=== PATIENT | male | born 1935 | race American Indian/Alaskan Native ===

== ENCOUNTER 2019-02-15 12:47 | Outpatient (CLI) | payer MEDICARE ==
[2019-02-15] MEDS ORDERED: XYLOCAINE TOPICAL 4% TP ONE (13:30)
[2019-02-15] MEDS ORDERED: NACL 0.9% IR ONE (13:42)
== END 2019-02-15 12:48 | disposition home or self-care (01) ==
LOC: WOUND 12:47
PROVIDERS: ATTEND Surgery
DX: E11.622 Type 2 diabetes mellitus with other skin ulcer (principal); I87.311 Chronic venous hypertension (idiopathic) with ulcer of right lower extremity; L97.812 Non-pressure chronic ulcer of other part of right lower leg with fat layer exposed; E11.39 Type 2 diabetes mellitus with other diabetic ophthalmic complication; H40.9 Unspecified glaucoma; R32 Unspecified urinary incontinence; M06.9 Rheumatoid arthritis, unspecified; E78.5 Hyperlipidemia, unspecified; I87.8 Other specified disorders of veins; Z87.891 Personal history of nicotine dependence; Z95.5 Presence of coronary angioplasty implant and graft; Z98.42 Cataract extraction status, left eye; Z98.41 Cataract extraction status, right eye
CPT/HCPCS: 11042; 11045; G0463; 99205

== ENCOUNTER 2019-02-22 13:00 | Outpatient (CLI) | payer MEDICARE ==
[2019-02-22] MEDS ORDERED: NACL 0.9% IR ONE (13:03)
[2019-02-22] MEDS ORDERED: XYLOCAINE TOPICAL 4% TP ONE (13:04)
== END 2019-02-22 13:01 | disposition home or self-care (01) ==
LOC: WOUND 13:00
PROVIDERS: ATTEND Surgery
DX: E11.622 Type 2 diabetes mellitus with other skin ulcer (principal); L97.812 Non-pressure chronic ulcer of other part of right lower leg with fat layer exposed; I87.311 Chronic venous hypertension (idiopathic) with ulcer of right lower extremity; I87.8 Other specified disorders of veins; E11.319 Type 2 diabetes mellitus with unspecified diabetic retinopathy without macular edema; H40.9 Unspecified glaucoma; I10 Essential (primary) hypertension; E78.5 Hyperlipidemia, unspecified; M06.9 Rheumatoid arthritis, unspecified; Z87.891 Personal history of nicotine dependence

== ENCOUNTER 2019-03-01 12:55 | Outpatient (CLI) | payer MEDICARE ==
[2019-03-01] MEDS ORDERED: XYLOCAINE TOPICAL 4% TP ONE (13:07)
== END 2019-03-01 12:56 | disposition home or self-care (01) ==
LOC: WOUND 12:55
PROVIDERS: ATTEND Surgery
DX: E11.622 Type 2 diabetes mellitus with other skin ulcer (principal); I87.311 Chronic venous hypertension (idiopathic) with ulcer of right lower extremity; L97.812 Non-pressure chronic ulcer of other part of right lower leg with fat layer exposed; I87.8 Other specified disorders of veins; E11.319 Type 2 diabetes mellitus with unspecified diabetic retinopathy without macular edema; H40.9 Unspecified glaucoma; I10 Essential (primary) hypertension; E78.5 Hyperlipidemia, unspecified; M06.9 Rheumatoid arthritis, unspecified; Z87.891 Personal history of nicotine dependence

== ENCOUNTER 2019-03-08 12:55 | Outpatient (CLI) | payer MEDICARE ==
[2019-03-08] MEDS ORDERED: XYLOCAINE TOPICAL 4% TP ONE (13:34)
== END 2019-03-08 12:56 | disposition home or self-care (01) ==
LOC: WOUND 12:55
PROVIDERS: ATTEND Surgery
DX: E11.621 Type 2 diabetes mellitus with foot ulcer (principal); I87.311 Chronic venous hypertension (idiopathic) with ulcer of right lower extremity; L97.514 Non-pressure chronic ulcer of other part of right foot with necrosis of bone; L97.413 Non-pressure chronic ulcer of right heel and midfoot with necrosis of muscle; E11.622 Type 2 diabetes mellitus with other skin ulcer; L97.812 Non-pressure chronic ulcer of other part of right lower leg with fat layer exposed; E78.5 Hyperlipidemia, unspecified; M06.9 Rheumatoid arthritis, unspecified; E11.39 Type 2 diabetes mellitus with other diabetic ophthalmic complication; H42 Glaucoma in diseases classified elsewhere; Z95.1 Presence of aortocoronary bypass graft; Z98.42 Cataract extraction status, left eye; Z98.41 Cataract extraction status, right eye; Z87.891 Personal history of nicotine dependence

== ENCOUNTER 2019-03-21 10:04 | Outpatient (CLI) | payer MEDICARE ==
--- NOTE | 2019-03-21 12:28 | Vascular Lab Report ---
PROCEDURE: VL ARTERIAL DUPLEX LE BILAT TECHNIQUE: Arterial duplex Doppler ultrasound performed. Grayscale, color flow and spectral waveform images are obtained of lower extremity arteries. HISTORY: Chronic venous hypertension (idiopathic) with ulcer of right lower COMPARISON: None FINDINGS: Right side: There is moderate plaque throughout. Flow velocities proximally are slightly elevated. Mo st notable is the deep femoral artery velocity of 244 cm/s and proximal SFA velocity of 217 cm/s as c ompared to external iliac velocity is 167 cm/s. There is phasic flow from distal external iliac arter y to the distal superficial femoral artery. There is monophasic flow from the popliteal artery to the dorsalis pedis artery. Flow is diminished in the anterior tibial and dorsalis pedis arteries. Left side: There is mild atherosclerotic plaque. Velocities proximally are slightly elevated. Most no table is the artery velocity of 221 cm/s distal SFA velocity of 194 cm/s as compared to extend iliac velocity of 179 cm/s. There is phasic flow from the distal external iliac artery to the popliteal art gisselle and posterior tibial artery. There is monophasic flow in the anterior tibial artery and biphasic flow in the dorsalis pedis artery. IMPRESSION: Mild to moderate atherosclerotic plaque, right more than left. Although proximal velocit ies are mildly elevated, I cannot confirm focal stenosis. Findings, as above, suggest mild arterial d isease on the left and moderate arterial disease distally on the right This document is electronically signed by Jessica Miner MD., March 21 2019 12:26:27 PM ET
== END 2019-03-21 10:05 | disposition home or self-care (01) ==
LOC: VAS 10:04
PROVIDERS: ATTEND Surgery
DX: I70.202 Unspecified atherosclerosis of native arteries of extremities, left leg (principal); E11.628 Type 2 diabetes mellitus with other skin complications; I87.311 Chronic venous hypertension (idiopathic) with ulcer of right lower extremity; I10 Essential (primary) hypertension; E11.9 Type 2 diabetes mellitus without complications
CPT/HCPCS: 93925

== ENCOUNTER 2019-03-22 11:07 | Outpatient (CLI) | payer MEDICARE | END 2019-03-22 11:08 | disposition home or self-care (01) | LOC: WOUND 11:07 | PROVIDERS: ATTEND Surgery | DX: I87.311 Chronic venous hypertension (idiopathic) with ulcer of right lower extremity (principal); E11.622 Type 2 diabetes mellitus with other skin ulcer; L97.812 Non-pressure chronic ulcer of other part of right lower leg with fat layer exposed; E78.5 Hyperlipidemia, unspecified; M06.9 Rheumatoid arthritis, unspecified; E11.39 Type 2 diabetes mellitus with other diabetic ophthalmic complication; H42 Glaucoma in diseases classified elsewhere; Z95.1 Presence of aortocoronary bypass graft; Z98.42 Cataract extraction status, left eye; Z98.41 Cataract extraction status, right eye; Z87.891 Personal history of nicotine dependence ==

== ENCOUNTER 2019-03-29 10:51 | Outpatient (CLI) | payer MEDICARE ==
[2019-03-29] MEDS ORDERED: XYLOCAINE TOPICAL 4% TP ONE (11:05)
== END 2019-03-29 10:52 | disposition home or self-care (01) ==
LOC: WOUND 10:51
PROVIDERS: ATTEND Surgery
DX: I87.311 Chronic venous hypertension (idiopathic) with ulcer of right lower extremity (principal); E11.622 Type 2 diabetes mellitus with other skin ulcer; L97.812 Non-pressure chronic ulcer of other part of right lower leg with fat layer exposed; E78.5 Hyperlipidemia, unspecified; M06.9 Rheumatoid arthritis, unspecified; E11.39 Type 2 diabetes mellitus with other diabetic ophthalmic complication; H42 Glaucoma in diseases classified elsewhere; Z95.1 Presence of aortocoronary bypass graft; Z98.42 Cataract extraction status, left eye; Z98.41 Cataract extraction status, right eye; Z87.891 Personal history of nicotine dependence

== ENCOUNTER 2019-04-06 11:00 | Outpatient (CLI) | payer MEDICARE ==
[2019-04-06] MEDS ORDERED: XYLOCAINE TOPICAL 4% TP ONE (11:18)
== END 2019-04-06 11:01 | disposition home or self-care (01) ==
LOC: WOUND 11:00
PROVIDERS: ATTEND Surgery
DX: I87.311 Chronic venous hypertension (idiopathic) with ulcer of right lower extremity (principal); E11.622 Type 2 diabetes mellitus with other skin ulcer; L97.812 Non-pressure chronic ulcer of other part of right lower leg with fat layer exposed; E78.5 Hyperlipidemia, unspecified; M06.9 Rheumatoid arthritis, unspecified; E11.39 Type 2 diabetes mellitus with other diabetic ophthalmic complication; H42 Glaucoma in diseases classified elsewhere

== ENCOUNTER 2019-04-13 10:58 | Outpatient (CLI) | payer MEDICARE ==
[2019-04-13] MEDS ORDERED: XYLOCAINE TOPICAL 4% TP ONE (11:29)
== END 2019-04-13 10:59 | disposition home or self-care (01) ==
LOC: WOUND 10:58
PROVIDERS: ATTEND Surgery
DX: I87.311 Chronic venous hypertension (idiopathic) with ulcer of right lower extremity (principal); E11.622 Type 2 diabetes mellitus with other skin ulcer; L97.812 Non-pressure chronic ulcer of other part of right lower leg with fat layer exposed; E78.5 Hyperlipidemia, unspecified; M06.9 Rheumatoid arthritis, unspecified; E11.39 Type 2 diabetes mellitus with other diabetic ophthalmic complication; H42 Glaucoma in diseases classified elsewhere

== ENCOUNTER 2019-04-19 11:06 | Outpatient (CLI) | payer MEDICARE ==
[2019-04-19] MEDS ORDERED: XYLOCAINE TOPICAL 4% TP ONE (11:30)
== END 2019-04-19 11:07 | disposition home or self-care (01) ==
LOC: WOUND 11:06
PROVIDERS: ATTEND Surgery
DX: I87.311 Chronic venous hypertension (idiopathic) with ulcer of right lower extremity (principal); E11.622 Type 2 diabetes mellitus with other skin ulcer; L97.812 Non-pressure chronic ulcer of other part of right lower leg with fat layer exposed; E78.5 Hyperlipidemia, unspecified; M06.9 Rheumatoid arthritis, unspecified; E11.39 Type 2 diabetes mellitus with other diabetic ophthalmic complication; H42 Glaucoma in diseases classified elsewhere

== ENCOUNTER 2019-04-26 11:03 | Outpatient (CLI) | payer MEDICARE | END 2019-04-26 11:04 | disposition home or self-care (01) | LOC: WOUND 11:03 | PROVIDERS: ATTEND Surgery | DX: I87.311 Chronic venous hypertension (idiopathic) with ulcer of right lower extremity (principal); E11.622 Type 2 diabetes mellitus with other skin ulcer; L97.812 Non-pressure chronic ulcer of other part of right lower leg with fat layer exposed; E78.5 Hyperlipidemia, unspecified; M06.9 Rheumatoid arthritis, unspecified; E11.39 Type 2 diabetes mellitus with other diabetic ophthalmic complication; H42 Glaucoma in diseases classified elsewhere ==

== ENCOUNTER 2019-05-04 12:04 | Outpatient (CLI) | payer MEDICARE ==
[2019-05-04] MEDS ORDERED: XYLOCAINE TOPICAL 4% TP ONE (12:19)
== END 2019-05-04 12:05 | disposition home or self-care (01) ==
LOC: WOUND 12:04
PROVIDERS: ATTEND Surgery
DX: I87.311 Chronic venous hypertension (idiopathic) with ulcer of right lower extremity (principal); E11.622 Type 2 diabetes mellitus with other skin ulcer; L97.812 Non-pressure chronic ulcer of other part of right lower leg with fat layer exposed; E78.5 Hyperlipidemia, unspecified; M06.9 Rheumatoid arthritis, unspecified; E11.39 Type 2 diabetes mellitus with other diabetic ophthalmic complication; H42 Glaucoma in diseases classified elsewhere

== ENCOUNTER 2019-05-10 11:05 | Outpatient (CLI) | payer MEDICARE ==
[2019-05-10] MEDS ORDERED: XYLOCAINE TOPICAL 4% TP ONE (11:28)
== END 2019-05-10 11:06 | disposition home or self-care (01) ==
LOC: WOUND 11:05
PROVIDERS: ATTEND Surgery
DX: E11.622 Type 2 diabetes mellitus with other skin ulcer (principal); I87.311 Chronic venous hypertension (idiopathic) with ulcer of right lower extremity; L97.812 Non-pressure chronic ulcer of other part of right lower leg with fat layer exposed; L84 Corns and callosities; E11.39 Type 2 diabetes mellitus with other diabetic ophthalmic complication; H42 Glaucoma in diseases classified elsewhere; E78.5 Hyperlipidemia, unspecified; M06.9 Rheumatoid arthritis, unspecified

== ENCOUNTER 2019-05-17 11:04 | Outpatient (CLI) | payer MEDICARE | END 2019-05-17 11:05 | disposition home or self-care (01) | LOC: WOUND 11:04 | PROVIDERS: ATTEND Surgery | DX: E11.622 Type 2 diabetes mellitus with other skin ulcer (principal); I87.311 Chronic venous hypertension (idiopathic) with ulcer of right lower extremity; L97.812 Non-pressure chronic ulcer of other part of right lower leg with fat layer exposed; I87.8 Other specified disorders of veins; E11.39 Type 2 diabetes mellitus with other diabetic ophthalmic complication; H42 Glaucoma in diseases classified elsewhere; E78.5 Hyperlipidemia, unspecified; M06.9 Rheumatoid arthritis, unspecified ==

== ENCOUNTER 2019-05-24 11:05 | Outpatient (CLI) | payer MEDICARE ==
[2019-05-24] MEDS ORDERED: XYLOCAINE TOPICAL 4% TP ONE (11:37)
== END 2019-05-24 11:06 | disposition home or self-care (01) ==
LOC: WOUND 11:05
PROVIDERS: ATTEND Surgery
DX: E11.622 Type 2 diabetes mellitus with other skin ulcer (principal); I87.311 Chronic venous hypertension (idiopathic) with ulcer of right lower extremity; L97.812 Non-pressure chronic ulcer of other part of right lower leg with fat layer exposed; I87.8 Other specified disorders of veins; E11.39 Type 2 diabetes mellitus with other diabetic ophthalmic complication; H42 Glaucoma in diseases classified elsewhere; E78.5 Hyperlipidemia, unspecified; M06.9 Rheumatoid arthritis, unspecified

== ENCOUNTER 2019-05-31 11:01 | Outpatient (CLI) | payer MEDICARE | END 2019-05-31 11:02 | disposition home or self-care (01) | LOC: WOUND 11:01 | PROVIDERS: ATTEND Surgery | DX: E11.622 Type 2 diabetes mellitus with other skin ulcer (principal); I87.311 Chronic venous hypertension (idiopathic) with ulcer of right lower extremity; L97.812 Non-pressure chronic ulcer of other part of right lower leg with fat layer exposed; I87.8 Other specified disorders of veins; E11.39 Type 2 diabetes mellitus with other diabetic ophthalmic complication; H42 Glaucoma in diseases classified elsewhere; E78.5 Hyperlipidemia, unspecified; M06.9 Rheumatoid arthritis, unspecified ==

== ENCOUNTER 2019-06-08 11:10 | Outpatient (CLI) | payer MEDICARE | END 2019-06-08 11:11 | disposition home or self-care (01) | LOC: WOUND 11:10 | PROVIDERS: ATTEND Surgery | DX: E11.622 Type 2 diabetes mellitus with other skin ulcer (principal); L97.812 Non-pressure chronic ulcer of other part of right lower leg with fat layer exposed; I87.311 Chronic venous hypertension (idiopathic) with ulcer of right lower extremity; E11.39 Type 2 diabetes mellitus with other diabetic ophthalmic complication; H42 Glaucoma in diseases classified elsewhere; I10 Essential (primary) hypertension; I87.8 Other specified disorders of veins; E78.5 Hyperlipidemia, unspecified; M06.9 Rheumatoid arthritis, unspecified ==

== ENCOUNTER 2019-06-14 11:17 | Outpatient (CLI) | payer MEDICARE | END 2019-06-14 11:18 | disposition home or self-care (01) | LOC: WOUND 11:17 | PROVIDERS: ATTEND Surgery | DX: I87.311 Chronic venous hypertension (idiopathic) with ulcer of right lower extremity (principal); E11.622 Type 2 diabetes mellitus with other skin ulcer; L97.812 Non-pressure chronic ulcer of other part of right lower leg with fat layer exposed; E11.39 Type 2 diabetes mellitus with other diabetic ophthalmic complication; H42 Glaucoma in diseases classified elsewhere; I10 Essential (primary) hypertension; I87.8 Other specified disorders of veins; E78.5 Hyperlipidemia, unspecified; M06.9 Rheumatoid arthritis, unspecified; Z98.42 Cataract extraction status, left eye ==

== ENCOUNTER 2019-06-28 11:01 | Outpatient (CLI) | payer MEDICARE | END 2019-06-28 11:02 | disposition home or self-care (01) | LOC: WOUND 11:01 | PROVIDERS: ATTEND Surgery | DX: I87.311 Chronic venous hypertension (idiopathic) with ulcer of right lower extremity (principal); E11.622 Type 2 diabetes mellitus with other skin ulcer; L97.812 Non-pressure chronic ulcer of other part of right lower leg with fat layer exposed; E11.39 Type 2 diabetes mellitus with other diabetic ophthalmic complication; H42 Glaucoma in diseases classified elsewhere; I10 Essential (primary) hypertension; I87.8 Other specified disorders of veins; E78.5 Hyperlipidemia, unspecified; M06.9 Rheumatoid arthritis, unspecified; Z98.42 Cataract extraction status, left eye ==

== ENCOUNTER 2019-07-05 11:07 | Outpatient (CLI) | payer MEDICARE | END 2019-07-05 11:08 | disposition home or self-care (01) | LOC: WOUND 11:07 | PROVIDERS: ATTEND Surgery | DX: E11.622 Type 2 diabetes mellitus with other skin ulcer (principal); I87.311 Chronic venous hypertension (idiopathic) with ulcer of right lower extremity; L97.822 Non-pressure chronic ulcer of other part of left lower leg with fat layer exposed; E11.39 Type 2 diabetes mellitus with other diabetic ophthalmic complication; H42 Glaucoma in diseases classified elsewhere; I10 Essential (primary) hypertension; M06.9 Rheumatoid arthritis, unspecified; E78.5 Hyperlipidemia, unspecified; Z98.42 Cataract extraction status, left eye; Z98.41 Cataract extraction status, right eye ==

== ENCOUNTER 2019-07-14 11:02 | Outpatient (CLI) | payer MEDICARE | END 2019-07-14 11:03 | disposition home or self-care (01) | LOC: WOUND 11:02 | PROVIDERS: ATTEND Surgery | DX: E11.622 Type 2 diabetes mellitus with other skin ulcer (principal); I87.311 Chronic venous hypertension (idiopathic) with ulcer of right lower extremity; L97.822 Non-pressure chronic ulcer of other part of left lower leg with fat layer exposed; E11.39 Type 2 diabetes mellitus with other diabetic ophthalmic complication; H42 Glaucoma in diseases classified elsewhere; I10 Essential (primary) hypertension; M06.9 Rheumatoid arthritis, unspecified; E78.5 Hyperlipidemia, unspecified; Z98.42 Cataract extraction status, left eye; Z98.41 Cataract extraction status, right eye | CPT/HCPCS: 97597 ==